=== PATIENT | male | born 1935 | race Caucasian/White ===

== ENCOUNTER 2016-06-14 09:05 | Inpatient (IN) | payer OTHER, BC ==
--- NOTE | 2016-06-05 11:53 | PAT Medication Instructions ---
Service Date Jun 05, 2016. Current Home Medication List Amlodipine Besylate (Amlodipine Besylate), 5 MG PO QAM Cholecalciferol (Vitamin D 1000 Unit), 1 CAP PO QAM Cranberry-Vitamin C-Vitamin E (Cranberry Plus Vitamin C), 4,200 MG PO QAM Donepezil HCl (Aricept), 1 TAB PO HS Gabapentin (Neurontin), 100 MG PO BID Glucosamine Sulfate (Glucosamine), Unknown Dose PO QAM Lisinopril (Lisinopril), 20 MG PO QAM Pyridoxine (Vitamin B6), 100 MG PO QAM Medication Instructions For Your Scheduled Surgery - Hold the following medications as of 06/06/16: Glucosamine Sulfate (Glucosamine), Unknown Dose PO QAM Cranberry-Vitamin C-Vitamin E (Cranberry Plus Vitamin C), 4,200 MG PO QAM - Hold the following medications the morning of surgery: Lisinopril (Lisinopril), 20 MG PO QAM Cholecalciferol (Vitamin D 1000 Unit), 1 CAP PO QAM Pyridoxine (Vitamin B6), 100 MG PO QAM - Take the following medications the morning of surgery with a sip of water OTHERWISE NOTHING TO EAT OR DRINK AFTER MIDNIGHT: Amlodipine Besylate (Amlodipine Besylate), 5 MG PO QAM Gabapentin (Neurontin), 100 MG PO BID - Take the following medications as scheduled the night before surgery: Gabapentin (Neurontin), 100 MG PO BID Donepezil HCl (Aricept), 1 TAB PO HS If you have any questions please call us at [phone] (Ryanne Malagon PA-C ) or [phone] or [phone]
[2016-06-05 12:46] LABS: BASO % 0.5 %; BASO ABS # 0.04 K/uL (0-0.2); COMPLETE YES; HEMATOCRIT 40.8 % (42-52); IG% 0.2 %; LYMPH % 13.5 %; LYMPH ABS # 1.12 K/uL (1.2-3.4); MEAN CELL VOLUME 91.7 fL (80-100); MEAN CORPUSCULAR HEMOGLOBIN 32.1 pg (25-34); MEAN PLATELET VOLUME 11.1 fL (7.4-10.4); MONO % 7.5 %; NEUT % 77.3 %; PLATELET COUNT 208 K/uL (130-400); RED BLOOD COUNT 4.45 M/uL (4.7-6.1); WHITE BLOOD COUNT 8.28 K/uL (4.8-10.8)
--- NOTE | 2016-06-05 13:14 | DIAGNOSTIC IMAGING REPORT ---
TWO VIEW CHEST CLINICAL HISTORY: Preoperative examination. FINDINGS: PA and lateral chest radiographs are compared to study dated 12/24/2014. Correlation is made with abdominal CT dated 02/11/2015. The heart is enlarged and there is atherosclerotic calcification of the thoracic aorta. The pulmonary vasculature is noncongested. Chronic interstitial thickening as well as calcified pleural plaques the left lung base is unchanged. No airspace consolidation or pleural effusion is identified. There is no pneumothorax. The skeletal structures are osteopenic. Degenerative change is noted throughout the thoracic spine. IMPRESSION: Cardiomegaly and chronic changes as above. There is no active disease in the chest. Electronically signed by: Jose Cheney M.D. 06/05/2016 1:12 PM
[2016-06-05 13:17] LABS: BUN/CREATININE RATIO 14.7 (10-20); CREATININE 0.9 mg/dl (0.60-1.40); POTASSIUM 3.8 mmol/L (3.5-5.1)
[~2016-06-14] VITALS: Ht 170.2 cm; Wt 89.4 kg
[~2016-06-14 09:05] MED LIST: CHOL100027 PO; CRAN1CAP14 PO; DONE5TAB9 PO; GABA-112 PO; GLUC10007 PO; LACTATED RINGER'S 1000ML 1,000 ML IV SCH; LSN20 PO; NRV5 PO; PYRI100T4 PO
[2016-06-14 09:32] VITALS: BP 170/79; PULSE 57; TEMP 36.6; O2SAT 97
[2016-06-14] MEDS ORDERED: PROPOFOL IV EMULSION 10 MG/ML 20 ML VIAL IV ONE (09:35)
[2016-06-14] MEDS ORDERED: NEOSTIGMINE METHYLSULFATE 5 MG/5 ML SYR ONE (09:35)
[2016-06-14] MEDS ORDERED: LIDOCAINE HCL 2% 2 ML VIAL (20MG/ML) ONE (09:35)
[2016-06-14] MEDS ORDERED: GLYCOPYRROLATE INJ 0.2 MG/ML VIAL ONE (09:35)
[2016-06-14] MEDS ORDERED: ONDANSETRON INJ 2 MG/ML 2 ML VIAL ONE (09:35)
[2016-06-14] MEDS ORDERED: MIDAZOLAM HCL 1 MG/ML 2ML VIAL ONE (09:35)
[2016-06-14] MEDS ORDERED: FENTANYL CITRATE INJ 50 MCG/1 ML 2 ML VIAL ONE (09:35)
[2016-06-14] MEDS ORDERED: ROCURONIUM BROMIDE 10 MG/ML 5 ML VIAL ONE ×2 (09:35→12:25)
[2016-06-14] MEDS ORDERED: DEXAMETHASONE SOD INJ 4 MG/ML VIAL ONE (09:35)
--- NOTE | 2016-06-14 10:53 | History & Physical Bridge Note ---
H&P Re-Evaluation Bridge Note: I have examined the patient, reviewed the History & Physical and in the interval since the performance of the History & Physical I have noted the following changes of clinical significance: No changes noted pt marked at bedside
[2016-06-14] MEDS ORDERED: CEFAZOLIN SOD 1 GM VIAL ONE (11:22)
[2016-06-14] MEDS ORDERED: BUPIVACAINE 0.5 % 5 MG/1 ML MPF 30ML VIAL INJ ONE (12:15)
[2016-06-14] MEDS ORDERED: ATROPINE SULFATE 0.4 MG/ML 1 ML VIAL ONE (12:17)
[2016-06-14] MEDS ORDERED: EpHEDrine SULFATE 50MG/5ML SYR ONE (12:26)
[2016-06-14] MEDS ORDERED: BACITRACIN 50000 UNIT VIAL IR ONE (12:30)
--- NOTE | 2016-06-14 12:43 | [facility] Post Operative Brief Note ---
Immediate Operative Summary Operative Date Jun 14, 2016. Pre-Operative Diagnosis Incisional hernia Post-Operative Diagnosis Repair recurrent hernia with dense abd adhesions and multifenestration Procedure(s) Performed Repair recurrent hernia with surgimesh 15 diameter and 10 diameter, and lysis of adhesions. Surgeon Robi Vang [employer] Appeals Reviewer Surgeon(s) Jesse Seymour Estimated Blood Loss 10mL Findings multiple defect along incision with incarcerated omentum and dense abd adhesions Specimens A: Urine for routine cath urinalysis, culture and sensitivity sent at 1150
[2016-06-14] MEDS ORDERED: ATROPINE SULFATE 0.1 MG/ML 5ML SYR IV PRN (13:00)
[2016-06-14] MEDS ORDERED: FLUMAZENIL 0.1 MG/1 ML 10 ML VIAL IV PRN (13:00)
[2016-06-14] MEDS ORDERED: EpHEDrine SULFATE INJ 50 MG/ML AMP IV PRN (13:00)
[2016-06-14] MEDS ORDERED: NALOXONE HCL 0.4 MG/1 ML VIAL/CARP IV PRN (13:00)
[2016-06-14] MEDS ORDERED: LABETALOL HCL IV 5 MG/ML 20ML IV PRN (13:00)
[2016-06-14] MEDS ORDERED: PROMETHAZINE HCL INJ 12.5 MG in SODIUM CHLORIDE 0.9% 50ML 50 ML IV PRN (13:00)
[2016-06-14] MEDS ORDERED: LACTATED RINGER'S 1000ML 1,000 ML IV SCH (13:01)
[2016-06-14] MEDS ORDERED: OXYC-57 PO (13:02)
--- NOTE | 2016-06-14 13:04 | Discharge Instructions ---
Discharge Instructions Visit Reason for Visit: Incisional Hernia Discharge Discharge Diagnosis / Problem: laparoscopic hernia repair Discharge Goals Goal(s): Decrease discomfort Activity Recommendations Activity Limitations: per Instructions/Follow-up section Lifting Limitations: no more than 10 pounds Shower/Bathe: tomorrow Driving or Machine Use: resume 3 days after discharge Anesthesia . Post Anesthesia Instructions: If you have had General Anesthesia or IV Sedation: * Do not drive today. * Resume driving when surgeon permits. * Do not make important decisions or sign legal documents today. * Call surgeon for: 1. Temperature elevations greater than 101 degrees F. 2. Uncontrollable pain. 3. Excessive bleeding. 4. Persistent nausea and vomiting. 5. Medication intolerance (nausea, vomiting or rash). * For nausea and vomiting use only clear liquids such as: tea, soda, bouillon until nausea subsides, then gradually increase diet as tolerated. * If you have any concerns or questions, call your surgeon's office. If physician is unavailable and it is an emergency, call 911 or go to the nearest emergency room. . Instructions / Follow-Up Instructions / Follow-Up Dr. Vang in 1 week, call [phone] if you do not already have an appt Diet Recommendations Recommended Home Diet: no limitations Procedures Procedures Performed: Laparoscopic Repair of recurrent hernia with surgimesh 15 diameter and 10 diameter, and lysis of adhesions. Pending Studies Studies pending at discharge: no Medical Emergencies . Who to Call and When: Medical Emergencies: If at any time you feel your situation is an emergency, please call 911 immediately. . Non-Emergent Contact Non-Emergency issues call your: Surgeon Call Non-Emergent contact if: you have a fever, temperature is above 101.5, your pain is not controlled, wound has increased redness, wound has increased pain . . "Provider Documentation" section prepared by Jesse Seymour.
[2016-06-14] MEDS ORDERED: ONDANSETRON INJ 2 MG/ML 2 ML VIAL IV PRN ×2 (13:15→14:45)
[2016-06-14] MEDS ORDERED: OXYCODONE/ACETAMINOPHEN 5-325 TAB PO PRN ×3 (13:15→14:45)
[2016-06-14] MEDS ORDERED: MoRPHine SULFATE 2 MG/ML CARP IV PRN ×2 (13:15→14:45)
[2016-06-14] MEDS ORDERED: HYDROmorphone INJ 1 MG/ML SYR ONE (13:18)
[2016-06-14] MEDS ORDERED: LABETALOL HCL IV 5 MG/ML 20ML ONE (13:18)
[2016-06-14] MEDS: HYDROmorphone INJ 1 MG/ML SYR IV PRN ×4 (13:25→14:23)
[2016-06-14] MEDS ORDERED: NURSING VERBAL MED ORDER ONE (13:30)
--- NOTE | 2016-06-14 13:32 | OPERATIVE REPORT ---
DATE OF OPERATION: 06/14/2016 PREOPERATIVE DIAGNOSIS: Recurrent incisional hernias. POSTOPERATIVE DIAGNOSIS: Same multiple with severe abdominal adhesions. PROCEDURE: Laparoscopic repair of multiple incarcerated incisional hernias, lysis of abdominal adhesions with mesh. SURGEON: Dr. Vang. MANAGER CLINICAL SERVICES: Elton Seymour PA-C. OPERATION AND FINDINGS: SUMMARY: The patient was brought into the operating room theater. Gordon catheter was positioned. The abdomen was shaved and prepped widely with Betadine scrubbing solution and properly draped. Systemic antibiotics were given. The patient had an upper midline incision extending from the level of the umbilicus to just a bit lower. He clinically had multiple incarcerated tissues in the epigastric area and this incision. Therefore we made a small incision in the infraumbilical about an inch or so to enter an area that we felt that probably did not have any adhesions. We used Braydon clamps to elevate the abdominal wall and then incised 0 Vicryl stay suture. We entered the peritoneal cavity with a 5 mm trocar. CO2 insufflated, pneumoperitoneum was controlled with Vicryl. At this point, we were able to see that the patient has significant abdominal adhesions in the anterior abdominal wall, mostly in the midline and also the right upper quadrant. Seemed like draped over the omentum and anterior wall. We at this point we were able to see in the right lower quadrant area that under direct visualization with preemptive local analgesia 1% Xylocaine, we were able to place a 5 mm trocar. With this then, we were able to see the left upper quadrant where another 5 mm trocar. With these 2 trocars we were able then to start freeing the dense abdominal adhesions which were omental adhesions in the midline. As we freed it up we continued to identify that multiple fenestrations of incarcerated omentum into the midline incision was identified. We could see some sutures. We also necessitated to place another 5 mm left lower quadrant port under direct visualization to help us but orientation and dissection. In the mid portion of the epigastric area, we could see the defect, 1 that was about 2 cm which showed what appeared to be mesh placement into the area. We at this point, we were able then to free up circumferentially all the way down to level and below the umbilicus sufficient enough so that the musculoskeletal planes were identified. We even took down part of the falciform ligament that basically would have a nice lay of Surgimesh. Though initially that 15 cm diameter Surgimesh would cover most of these areas therefore we brought it in, placed it through the infraumbilical trocar, elevated centrally in the mid portion of the exterior on the nylon suture. I used a Tacker circumferentially go well beyond the defects. Of notice there was another defect just inferior to that which was about another centimeter or so in the midline incision just above the umbilicus and at this point I elected to bring another piece of 10 cm Surgimesh. We elevated the right in central just to cover this defect and there was an overlap between the 2 meshes. We used a tacker circumferentially and then we elected to make sure that the 2 meshes would stay together we placed a nylon suture intraabdominally and elevated it anteriorly in the midline through the 1 mesh and superiorly incorporating both meshes. The repair appeared to be solid. Hemostasis was satisfactory. At this point, we took out individual trocars, used 0 Vicryl suture as a fascial stitch in the infraumbilical area and then placed another 0 Vicryl suture around it [id number]. Wounds were closed with 4-0 Dexon and Steri-Strips applied. The procedure was tolerated well by the patient, 10 mL blood loss. The patient was taken to recovery room in good condition. I attest to the content of the Intraoperative Record and any orders documented therein. Any exceptio ns are noted below.
[2016-06-14] MEDS ORDERED: MoRPHine SULFATE 4 MG/ML 1 ML CARP\\VIAL IV PRN (14:45)
--- NOTE | 2016-06-14 14:51 | Anesthesiology Progress Note ---
Anesthesia Post Op Note Date & Time Jun 14, 2016 at 14:41 Vital Signs Pain Intensity: 3 Vital Signs Past 12 Hours Date Time Temp Pulse Resp B/P Pulse Ox O2 Delivery O2 Flow Rate FiO2 06/14/16 14:36 56 17 96 06/14/16 14:36 58 17 06/14/16 14:34 149/78 06/14/16 14:31 60 17 94 06/14/16 14:31 67 17 06/14/16 14:29 142/80 06/14/16 14:26 63 14 96 06/14/16 14:26 63 14 06/14/16 14:24 145/85 06/14/16 14:21 55 13 06/14/16 14:21 52 13 95 06/14/16 14:19 136/83 06/14/16 14:16 56 15 96 06/14/16 14:16 65 15 06/14/16 14:15 142/78 06/14/16 14:10 59 17 96 06/14/16 14:10 66 17 06/14/16 14:09 139/79 06/14/16 14:05 56 16 92 06/14/16 14:05 57 16 06/14/16 14:04 142/82 06/14/16 14:00 53 15 97 06/14/16 14:00 61 15 06/14/16 13:59 53 18 170/71 96 06/14/16 13:59 62 18 06/14/16 13:55 143/87 06/14/16 13:54 56 16 06/14/16 13:54 55 16 95 06/14/16 13:50 133/77 06/14/16 13:49 60 13 06/14/16 13:49 54 13 100 06/14/16 13:44 59 12 06/14/16 13:44 57 12 146/89 99 06/14/16 13:39 65 15 06/14/16 13:39 61 15 140/73 95 06/14/16 13:35 171/98 06/14/16 13:34 67 14 100 06/14/16 13:34 75 14 06/14/16 13:29 69 17 172/106 97 06/14/16 13:29 74 17 06/14/16 13:25 172/98 06/14/16 13:24 63 18 98 06/14/16 13:24 68 18 06/14/16 13:19 86 17 06/14/16 13:19 73 17 99 06/14/16 13:15 185/108 06/14/16 13:14 82 15 100 06/14/16 13:14 81 15 06/14/16 13:09 90 18 06/14/16 13:09 88 18 179/117 98 06/14/16 13:04 87 18 183/103 94 06/14/16 13:04 82 18 06/14/16 12:59 83 15 97 06/14/16 12:59 85 15 06/14/16 12:59 36.0 79 16 175/104 98 Mask 10 06/14/16 09:32 36.6 57 20 170/79 97 Room Air Notes Mental Status: alert / awake / arousable, participated in evaluation Pt Amnestic to Procedure: Yes Nausea / Vomiting: adequately controlled Pain: adequately controlled Airway Patency, RR, SpO2: stable & adequate BP & HR: see Notes Hydration State: stable & adequate Anesthetic Complications: no major complications apparent Pt is 81 w/ PMHx sig. 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 Pt had a laparoscopic inuinal hernia repair under general anesthesia w/o incident.In PACU, I noticed the radiation monitor w/PAC's,some PVC's and ST elevations.A 12 lead EKG was obtained which showed 2nd degree AV block and inferior STEMI. Troponins were ordered w/c were basically normal at this time.Cardiology was consulted. They agreed that this maybe an impending inferior stemi.A second EKG was obtained w/c showed SR w/2nd degree AV block, otherwise back to baseline.Pt has been H/D stable w/o c/o c/p or sob. Pt will be admitted to telemetry and followed by cardiology.
[2016-06-14] MEDS ORDERED: HydrALAZINE HCL 20 MG/ML VIAL IV. PRN (15:00)
--- NOTE | 2016-06-14 15:45 | Cardiology Consultation ---
Cardiology Consultation Date of Consultation: Jun 14, 2016. Attending Physician: Dr. Griffith Reason for Consultation: Post-op ECG changes Pt evaluation today including: conversation w/ patient, physical exam, chart review, lab review, review of studies, review of inpatient medication list, conversation w/ attending History of Present Illness Mr. Jordan is an 81-year-old male with a past medical history significant for hypertension, hypogammaglobulinemia with IgG kappa, peripheral neuropathy, and dizziness who underwent laparoscopic repair of incision hernia earlier today with Dr. Vang. Following the procedure, ECG showed new ST elevation in lead III as well as ST depression of leads V2-V6, I, and aVL. Repeat ECG about 50 minutes later with resolution of the ST changes. Throughout the post- operative period, he has denied any chest discomfort or other anginal symptoms. He has been resting comfortably with no shortness of breath, lightheadedness, palpitations, nausea, or vomiting. His only complaint is abdominal pain around the area of his laparoscopic incision. Review of Systems: As noted in HPI. All other ROS otherwise negative. Past Medical/Surgical History Surgical hx: S/P appendectomy, S/P hernia repair Family History Patient reports no known family medical history. Noncontributory given his advanced age Social History Smoking Status: Former Smoker History of Alcohol Use: No Former smoker. Former alcohol abuse. No recreational drug use. Allergies Coded Allergies: No Known Allergies (Verified , 06/14/16) Medications Current Inpatient Medications Medications (Trade) Dose Ordered Sig/Any Route Start Time Stop Time Status Last Admin Dose Admin Lactated Ringer's (Lr 1000ml) 1,000 ml @ 15 mls/hr Q24H IV 06/14/16 06:00 06/14/16 18:00 Hydromorphone HCl (Dilaudid Inj) 0.25 mg Q5M PRN IV 06/14/16 13:00 06/14/16 18:00 06/14/16 13:50 0.25 MG Naloxone HCl (Narcan Inj) 0.2 mg Q2M PRN IV 06/14/16 13:00 06/14/16 18:00 Flumazenil 0.2 mg 0.2 mg Q2M PRN IV 06/14/16 13:00 06/14/16 18:00 Promethazine HCl/ Sodium Chloride (Phenergan Inj/ Nss 50ml) 50.5 ml @ 202 mls/hr ONE PRN IV 06/14/16 13:00 06/14/16 18:00 Labetalol HCl (Normodyne IV) 5 mg Q5M PRN IV 06/14/16 13:00 06/14/16 18:00 Ephedrine Sulfate (EpHEDrine SULFATE INJ) 5 mg Q5M PRN IV 06/14/16 13:00 06/14/16 18:00 Atropine Sulfate 0.5 mg 0.5 mg Q1M PRN IV 06/14/16 13:00 06/14/16 18:00 Sodium Chloride (Nss 1000ml) 1,000 ml @ 80 mls/hr [id number] IV 06/14/16 14:37 07/14/16 14:36 UNV Ondansetron HCl (Zofran Inj) 4 mg Q4H PRN IV 06/14/16 14:45 07/14/16 14:44 UNV Morphine Sulfate (MoRPHine SULFATE INJ) 2 mg Q1H PRN IV 06/14/16 14:45 06/28/16 14:44 UNV Oxycodone/ Acetaminophen (Percocet 5-325MG Tab) 1 tab Q4H PRN PO 06/14/16 14:45 06/28/16 14:44 UNV Morphine Sulfate (MoRPHine SULFATE INJ) 4 mg Q1H PRN IV 06/14/16 14:45 06/28/16 14:44 UNV Oxycodone/ Acetaminophen (Percocet 5-325MG Tab) 2 tab Q4H PRN PO 06/14/16 14:45 06/28/16 14:44 UNV Amlodipine Besylate (Norvasc Tab) 5 mg QAM PO 06/15/16 09:00 07/15/16 08:59 UNV Donepezil HCl (Aricept Tab) 5 mg HS PO 06/14/16 21:00 07/14/16 20:59 UNV Gabapentin (Neurontin Cap) 100 mg BID PO 06/14/16 21:00 07/14/16 20:59 UNV Lisinopril (Zestril Tab) 20 mg QAM PO 06/15/16 09:00 07/15/16 08:59 UNV Hydralazine HCl (HydrALAZINE INJ) 20 mg UD PRN IV. 06/14/16 15:00 07/14/16 14:59 UNV Physical Exam Vital Signs Past 12 Hours Date Time Temp Pulse Resp B/P Pulse Ox O2 Delivery O2 Flow Rate FiO2 06/14/16 15:04 138/93 06/14/16 15:03 74 20 06/14/16 15:03 74 20 96 06/14/16 14:58 72 18 141/81 94 06/14/16 14:58 72 18 06/14/16 14:57 36.3 06/14/16 14:53 68 19 06/14/16 14:53 63 19 95 06/14/16 14:49 131/81 06/14/16 14:48 63 18 95 06/14/16 14:48 65 18 06/14/16 14:47 63 16 97 06/14/16 14:47 66 16 06/14/16 14:45 147/84 06/14/16 14:42 77 16 06/14/16 14:42 56 16 92 06/14/16 14:39 134/81 06/14/16 14:37 56 14 98 06/14/16 14:37 60 14 06/14/16 14:36 56 17 96 06/14/16 14:36 58 17 06/14/16 14:34 149/78 06/14/16 14:31 60 17 94 06/14/16 14:31 67 17 06/14/16 14:29 142/80 06/14/16 14:26 63 14 96 06/14/16 14:26 63 14 06/14/16 14:24 145/85 06/14/16 14:21 55 13 06/14/16 14:21 52 13 95 06/14/16 14:19 136/83 06/14/16 14:16 56 15 96 06/14/16 14:16 65 15 06/14/16 14:15 142/78 06/14/16 14:10 59 17 96 06/14/16 14:10 66 17 06/14/16 14:09 139/79 06/14/16 14:05 56 16 92 06/14/16 14:05 57 16 06/14/16 14:04 142/82 06/14/16 14:00 53 15 97 06/14/16 14:00 61 15 06/14/16 13:59 53 18 170/71 96 06/14/16 13:59 62 18 06/14/16 13:55 143/87 06/14/16 13:54 56 16 06/14/16 13:54 55 16 95 06/14/16 13:50 133/77 06/14/16 13:49 60 13 06/14/16 13:49 54 13 100 06/14/16 13:44 59 12 06/14/16 13:44 57 12 146/89 99 06/14/16 13:39 65 15 06/14/16 13:39 61 15 140/73 95 06/14/16 13:35 171/98 06/14/16 13:34 67 14 100 06/14/16 13:34 75 14 06/14/16 13:29 69 17 172/106 97 06/14/16 13:29 74 17 06/14/16 13:25 172/98 06/14/16 13:24 63 18 98 06/14/16 13:24 68 18 06/14/16 13:19 86 17 06/14/16 13:19 73 17 99 06/14/16 13:15 185/108 06/14/16 13:14 82 15 100 06/14/16 13:14 81 15 06/14/16 13:09 90 18 06/14/16 13:09 88 18 179/117 98 06/14/16 13:04 87 18 183/103 94 06/14/16 13:04 82 18 06/14/16 12:59 83 15 97 06/14/16 12:59 85 15 06/14/16 12:59 36.0 79 16 175/104 98 Mask 10 06/14/16 09:32 36.6 57 20 170/79 97 Room Air Constitutional: Alert, oriented, in no acute distress. Hard of hearing. Oxygen via nasal cannula HEENT: Head is atraumatic and normocephalic. EOMs intact. Sclera anicteric. Face is symmetric. No perioral cyanosis. Mucous membranes moist. Neck: Supple, no JVD Pulmonary: Normal respiratory effort, clear to auscultation bilaterally Cardiac: Distant heart sounds. Regular rate and rhythm, normal S1 and S2, no gallops, no rubs, no obvious murmurs Extremities: SCDs in place. No edema. Pulses intact Abdomen: S/P laparoscopic incisional hernia repair. Normal bowel sounds, soft, non-tender, no abdominal mass palpated Skin: Normal skin color, turgor, and pigmentation, no rash, no skin lesions Neurological: Oriented to person, place, and time Data Laboratory Results: Last 24 Hours Test 06/14/16 13:43 Troponin I 0.016 ng/ml CXR 06/05/16: Cardiomegaly and atherosclerotic calcification of the thoracic aorta. Chronic interstitial thickening as well as calcified pleural plaques the left lung base is unchanged. The skeletal structures are osteopenic. Degenerative change is noted throughout the thoracic spine. No active disease in chest. EKG 06/05/16: Sinus rhythm with 1st degree AV block with PACs. Nonspecific ST abnormality EKG 06/14/16 13:02: Sinus tachycardia with 2nd degree (Mobitz I) AV block with occasional PVCs. ST elevation lead III. ST depression leads V2-V6, I, aVL. EKG 06/14/16 13:52: Sinus rhythm with 2nd degree (Mobitz I) AV block. Resolution of ST changes. Assessment & Plan Patient is an 81-year-old male with no known cardiac history who underwent laparoscopic incision hernia repair with Dr. Vang. Following surgery, he was noted to have new EKG changes with ST elevation in lead III and ST depression of his anterolateral leads. Repeat EKG showed resolution of the changes. His first Troponin was negative. Patient has remained asymptomatic in regards to chest pain throughout the perioperative period. Patient seen/ discussed with Dr. Griffith and Dr. Pena. There is no urgent indication for cardiac catheterization at this time as it appears his EKG changes were due to hemodynamic changes following surgery rather than ACS, but it is recommended that he be admitted to the unit with serial cardiac enzymes as well as prn EKGs for chest pain. If patient is stable and amendable, will consider performing cardiac catheterization tomorrow for further evaluation of his coronary anatomy. Continue VEHICLE PAINTER medications and Hydralazine 20 mg IV q3 has also been ordered prn for systolic BP >160 mmHg. Will continue to follow throughout his hospitalization and make further recommendations depending on his clinical course. DR. PENA ADDENDUM: Have seen and examined Mr. Jordan in the PACU. Agree with assessment and plan as outlined by physician assistant golf course superintendent Ms. Muñoz. 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 In PACU was noted to have PVCs and possible ST elevation on monitor and ECG obtained. ECG showed 2nd degree AVB type I with marked ST anterolateral depressions with borderline inferior ST elevations. Patient reports being chest pain free throughout hospital course and repeat ECG 50 min later showed resolved dynamic ST changes. Initial troponin negative. Last stress test negative at 81% MPHR, with normal resting LV function 10/2014. Denies exertional symptoms at home. Low suspicion for true ACS at this point but concern that initial ECG in the setting of perioperative stress may represent hemodynamically significant underlying coronary artery disease "failed stress test." In that setting feel patient warrants further ischemic evaluation. Discussed possible cardiac catheterization at some point with patient this evening. Patient wishes to discuss further with his in AM. Monitor on telemetry overnight, follow-up cardiac enzymes.
[2016-06-14 20:07] VITALS: BP 156/91; PULSE 89; TEMP 36.3; O2SAT 95; Ht 170.2 cm; Wt 89.4 kg
[2016-06-14] MEDS: SODIUM CHLORIDE 0.9% 1000ML 1,000 ML IV SCH (21:00)
[2016-06-14] MEDS ORDERED: DONEPEZIL HCL 5 MG TAB PO SCH (21:00)
[2016-06-14] MEDS: GABAPENTIN 100 MG CAP PO SCH (21:34)
[2016-06-14 22:57] VITALS: BP 153/77; PULSE 83; TEMP 37; O2SAT 93
[2016-06-15 00:07] VITALS: BP 136/80; PULSE 86; TEMP 36.7; O2SAT 98
[2016-06-15 03:15] VITALS: BP 124/74; PULSE 86; TEMP 36.8; O2SAT 95
[2016-06-15] MEDS: SODIUM CHLORIDE 0.9% 1000ML 1,000 ML IV SCH (05:19)
[2016-06-15 05:23] LABS: BASO % 0.1 %; BASO ABS # 0.01 K/uL (0-0.2); COMPLETE YES; HEMATOCRIT 29.5 % (42-52); IG% 0.3 %; LYMPH % 6.2 %; LYMPH ABS # 0.93 K/uL (1.2-3.4); MEAN CELL VOLUME 91.3 fL (80-100); MEAN CORPUSCULAR HEMOGLOBIN 31.6 pg (25-34); MEAN CORPUSCULAR HGB CONC 34.6 g/dl (32-36); MONO % 11.3 %; NEUT % 82.1 %; PLATELET COUNT 196 K/uL (130-400); RED BLOOD COUNT 3.23 M/uL (4.7-6.1)
[2016-06-15 05:48] LABS: BUN/CREATININE RATIO 17.3 (10-20); CALCIUM 7.9 mg/dl (8.5-10.1); CREATININE 0.94 mg/dl (0.60-1.40); POTASSIUM 4.5 mmol/L (3.5-5.1)
[2016-06-15 05:55] LABS: CKMB/CK RATIO 4.5 (0-3.0)
[2016-06-15 08:07] VITALS: BP 133/77; PULSE 71; TEMP 37; O2SAT 98
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
--- NOTE | 2016-06-15 08:35 | Anesthesiology Progress Note ---
Anesthesia Post Op Note Date & Time Jun 15, 2016 at 08:34 Vital Signs Pain Intensity: 5.0 Vital Signs Past 12 Hours Date Time Temp Pulse Resp B/P Pulse Ox O2 Delivery O2 Flow Rate FiO2 06/15/16 08:07 37.0 71 20 133/77 98 Nasal Cannula 2.0 06/15/16 04:00 Nasal Cannula 2.0 06/15/16 03:15 36.8 86 20 124/74 95 Nasal Cannula 2.0 06/15/16 00:07 36.7 86 19 136/80 98 Nasal Cannula 2.0 06/15/16 00:00 Nasal Cannula 2.0 06/14/16 22:57 Notes Mental Status: alert / awake / arousable, participated in evaluation Pt Amnestic to Procedure: Yes Nausea / Vomiting: adequately controlled Pain: adequately controlled Airway Patency, RR, SpO2: stable & adequate BP & HR: stable & adequate Hydration State: stable & adequate Anesthetic Complications: no major complications apparent
[2016-06-15] MEDS: GABAPENTIN 100 MG CAP PO SCH (08:39)
[2016-06-15] MEDS ORDERED: LISINOPRIL 20 MG TAB PO SCH (09:00)
[2016-06-15] MEDS ORDERED: AMLODIPINE BESYLATE 5 MG TAB PO SCH (09:00)
[2016-06-15] MEDS ORDERED: PLAVIX75 PO (09:56)
--- NOTE | 2016-06-15 10:06 | Clinical Documentation Query ---
CLINICAL DOCUMENTATION QUERY 81-y/o male who has undergone laparoscopic repair of incisional hernia and lysis of abdominal adhesions with mesh. In your clinical opinion is this patient being managed for: ( ) Demand ischemia in setting of anemia and surgical stress ( ) NSTEMI in setting of anemia and surgical stress ( ) Other explanation of clinical findings (Please Explain) ( ) Unable to determine (Please Define) ( ) Need to Discuss ( x ) Not Agree refer to cardiology for their dx The medical record reflects the following clinical findings, treatment, and risk factors. Clinical Indicators: Post operative ST changes which latter normalized & upward trending troponin's (0.016, 0.047, 0.511) Treatment: Cardiology consult, serial cardiac markers, telemetry, Risk Factors: Age, HTN, anemia, Please clarify and document your clinical opinion in the progress notes and discharge summary. Terms such as "probable", "suspected", "likely", "questionable", "possible", or "still to be ruled out" are acceptable. IF IN AGREEMENT, YOU MUST DOCUMENT ABOVE DIAGNOSTIC STATEMENT IN DAILY PROGRESS NOTES AND DISCHARGE SUMMARY. This document is not part of the patient's record. Thank You, Carmelo Moore, RN [phone]
[2016-06-15 10:45] VITALS: BP 118/78; PULSE 88; O2SAT 98
[2016-06-15] MEDS ORDERED: NiCARDipine HCL INJ 2.5 MG/ML 10 ML AMP ONE (10:56)
[2016-06-15] MEDS ORDERED: HEPARIN SOD (PORCINE) 1000 UNIT/ML 10 ML VIAL ONE (10:56)
[2016-06-15] MEDS ORDERED: FENTANYL CITRATE INJ 50 MCG/1 ML 2 ML VIAL ONE (10:57)
[2016-06-15] MEDS ORDERED: MIDAZOLAM HCL 1 MG/ML 2ML VIAL ONE (10:57)
[2016-06-15] MEDS ORDERED: NITROGLYCERIN/D5W 100MCG/ML 20ML SYR ONE (10:58)
--- NOTE | 2016-06-15 11:05 | Cardiology Follow-Up ---
Subjective Subjective Date of Service: Jun 15, 2016. Pt evaluation today including: conversation w/ patient, conversation w/ family (son), physical exam, chart review, lab review, review of studies, conversation w/ funeral pre need consultant, review of inpatient medication list Pain: upper abdomen Voiding: no voiding problems Additional Details: some upper abdomen discomfort/low chest. dyspnea is stable. dynamic ECG changes this morning after normalization earlier. denies bleeding issues. During OR, patient had some bradycardia, bp remained stable. Review of Systems Constitutional: + fatigue, + weakness, No chills, No fever Eyes: No worsening of vision ENT: + hearing loss, No problem reported, No trouble swallowing, No unusual epistaxis Respiratory: No cough, No dyspnea at rest, No dyspnea on exertion, No hemoptysis, No shortness of breath, No sputum Cardiac: + chest pain, No PND, No claudication, No edema, No orthopnea, No palpitations, No problem reported Breast: No breast pain, No problem reported Abdomen: + pain (at incision), No GI bleeding, No constipation, No diarrhea, No nausea, No problem reported, No vomiting Musculoskeletal: No calf pain, No joint pain, No swelling Male : No hematuria, No problem reported Neurologic: + balance problems, + memory loss, + problem reported Psychiatric: No anxiety, No depression symptoms Heme: No abnormal bleeding/bruising, No problem reported Endo: No fatigue, No problem reported Skin: No bleeding, No color change, No itch, No new/changing skin lesions, No problem reported, No rash Objective Vital Signs Last Vital Signs Documentation Date Time Temp Pulse Resp B/P Pulse Ox O2 Delivery O2 Flow Rate FiO2 06/15/16 08:07 37.0 71 20 133/77 98 Nasal Cannula 2.0 Physical Exam: General Appearance: WD/WN, no apparent distress Eyes: bilateral eyes EOMI, bilateral eyes normal inspection ENT: normal ENT inspection, hearing grossly normal Neck: supple, no adenopathy, thyroid normal, no JVD, no carotid bruits, trachea midline Respiratory/Chest: chest non-tender, lungs clear, normal breath sounds, no respiratory distress, no accessory muscle use Cardiovascular: regular rate, rhythm, no edema, no gallop, no JVD, no murmur Abdomen: normal bowel sounds, soft, + pertinent finding (ecchymosis around incisions. CDI) Extremities: normal range of motion, non-tender, normal inspection, no pedal edema, no calf tenderness Neurologic/Psychiatric: alert, normal mood/affect, oriented x 3, + disoriented , + pertinent finding Skin: normal color, warm/dry, no rash Lymphatic: no adenopathy Assessment and Plan 1. NSTEMI ECG changes - isolated ST elevations with q waves in III. Dynamic ST depressions throughout. Patient with upper abdomen/lower chest discomfort and dizziness/LH currently. BP stable. Discussion with surgery, hopefully ok regarding bleeding risk POD 1. Recommend cardiac catheterization today/ urgently regarding dynamic changes on ECG. Echo pending, however, there are regional wall motion abnormalities. Initial plan was to treat conservatively, however, with ongoing ECG changes, rising trop, and symptoms - rec cath today. Risk discussed with patient - he is agreeable. Discussed with son on the phone - he is agreeable. is on her way. Medications: Current Inpatient Medications Medications (Trade) Dose Ordered Sig/Any Route Start Time Stop Time Status Last Admin Dose Admin Sodium Chloride (Nss 1000ml) 1,000 ml @ 80 mls/hr [id number] IV 06/14/16 14:37 07/14/16 14:36 06/15/16 05:19 80 MLS/HR Ondansetron HCl (Zofran Inj) 4 mg Q4H PRN IV 06/14/16 14:45 07/14/16 14:44 Morphine Sulfate (MoRPHine SULFATE INJ) 2 mg Q1H PRN IV 06/14/16 14:45 06/28/16 14:44 Oxycodone/ Acetaminophen (Percocet 5-325MG Tab) 1 tab Q4H PRN PO 06/14/16 14:45 06/28/16 14:44 06/15/16 00:12 1 TAB Morphine Sulfate (MoRPHine SULFATE INJ) 4 mg Q1H PRN IV 06/14/16 14:45 06/28/16 14:44 Oxycodone/ Acetaminophen (Percocet 5-325MG Tab) 2 tab Q4H PRN PO 06/14/16 14:45 06/28/16 14:44 Amlodipine Besylate (Norvasc Tab) 5 mg QAM PO 06/15/16 09:00 07/15/16 08:59 06/15/16 08:14 5 MG Donepezil HCl (Aricept Tab) 5 mg HS PO 06/14/16 21:00 07/14/16 20:59 06/14/16 22:16 5 MG Gabapentin (Neurontin Cap) 100 mg BID PO 06/14/16 21:00 07/14/16 20:59 06/15/16 08:39 100 MG Lisinopril (Zestril Tab) 20 mg QAM PO 06/15/16 09:00 07/15/16 08:59 06/15/16 08:15 20 MG Hydralazine HCl (HydrALAZINE INJ) 20 mg Q3H PRN IV. 06/14/16 15:00 07/14/16 14:59 Lab Results: 06/15/16 05:14 Red Blood Count 3.23, Mean Corpuscular Volume 91.3, Mean Corpuscular Hemoglobin 31.6, Mean Corpuscular Hemoglobin Concent 34.6, Mean Platelet Volume 11.0, Neutrophils (%) (Auto) 82.1, Lymphocytes (%) (Auto) 6.2, Monocytes (%) (Auto) 11.3, Eosinophils (%) (Auto) 0.0, Basophils (%) (Auto) 0.1, Neutrophils # (Auto ) 12.32, Lymphocytes # (Auto) 0.93, Monocytes # (Auto) 1.70, Eosinophils # (Auto ) 0.00, Basophils # (Auto) 0.01 06/15/16 05:14 Test 06/15/16 05:14 White Blood Count 15.00 K/uL (4.8-10.8) Red Blood Count 3.23 M/uL (4.7-6.1) Hemoglobin 10.2 g/dL (14.0-18.0) Hematocrit 29.5 % (42-52) Mean Corpuscular Volume 91.3 fL (80-100) Mean Corpuscular Hemoglobin 31.6 pg (25-34) Mean Corpuscular Hemoglobin Concent 34.6 g/dl (32-36) Platelet Count 196 K/uL (130-400) Mean Platelet Volume 11.0 fL (7.4-10.4) Neutrophils (%) (Auto) 82.1 % Lymphocytes (%) (Auto) 6.2 % Monocytes (%) (Auto) 11.3 % Eosinophils (%) (Auto) 0.0 % Basophils (%) (Auto) 0.1 % Neutrophils # (Auto) 12.32 K/uL (1.4-6.5) Lymphocytes # (Auto) 0.93 K/uL (1.2-3.4) Monocytes # (Auto) 1.70 K/uL (0.11-0.59) Eosinophils # (Auto) 0.00 K/uL (0-0.5) Basophils # (Auto) 0.01 K/uL (0-0.2) RDW Standard Deviation 47.6 fL (36.4-46.3) RDW Coefficient of Variation 14.2 % (11.5-14.5) Immature Granulocyte % (Auto) 0.3 % Immature Granulocyte # (Auto) 0.04 K/uL (0.00-0.02) Anion Gap 8.0 mmol/L (3-11) Est Creatinine Clear Calc Drug Dose 64.9 ml/min Estimated GFR () 87.8 Estimated GFR (Non- 75.7 BUN/Creatinine Ratio 17.3 (10-20) Calcium Level 7.9 mg/dl (8.5-10.1) Total Creatine Kinase 188 U/L (39-308) Creatine Kinase MB 8.5 ng/ml (0.5-3.6) Creatine Kinase MB Ratio 4.5 (0-3.0) Troponin I 0.511 ng/ml (0-0.045)
--- NOTE | 2016-06-15 11:06 | Procedure Note ---
Pre-Mod Sedation Assessment General Date of Moderate Sedation: Jun 15, 2016. Vital Signs: Vital Signs Past 12 Hours Date Time Temp Pulse Resp B/P Pulse Ox O2 Delivery O2 Flow Rate FiO2 06/15/16 08:07 37.0 71 20 133/77 98 Nasal Cannula 2.0 06/15/16 04:00 Nasal Cannula 2.0 06/15/16 03:15 36.8 86 20 124/74 95 Nasal Cannula 2.0 06/15/16 00:07 36.7 86 19 136/80 98 Nasal Cannula 2.0 06/15/16 00:00 Nasal Cannula 2.0 Review Cardiovascular: regular rate, rhythm, no edema, no gallop, no JVD, no murmur, normal peripheral pulses Abdomen: normal bowel sounds, soft, + pertinent finding (post op changes) Lungs: chest non-tender, lungs clear, normal breath sounds, no respiratory distress, no accessory muscle use Pre-Sedation Airway Assessment Oral Cavity: Dentures Able to Visualize Vocal Cords: No Short Thick Neck: No Hx of Sleep Apnea: No Smoking Status: Former Smoker Procedure Planning Contraindications-for Mod Sed: None Yes Notes The planned sedation has been discussed with the patient and consent obtained. I have identified the patient, determined the appropriateness of sedation and have assessed the patient immediately prior to the procedure. All medicine(s) and interventions are by my order.
--- NOTE | 2016-06-15 12:18 | Procedure Note ---
Post-Mod Sedation Assessment General Date of Moderate Sedation Jun 15, 2016. Vital Signs: Vital Signs Past 12 Hours Date Time Temp Pulse Resp B/P Pulse Ox O2 Delivery O2 Flow Rate FiO2 06/15/16 08:07 37.0 71 20 133/77 98 Nasal Cannula 2.0 06/15/16 04:00 Nasal Cannula 2.0 06/15/16 03:15 36.8 86 20 124/74 95 Nasal Cannula 2.0 Review - Discharge Criteria Vital Signs Stable: Yes Alert/Oriented/Conversant: Yes Returned to Baseline Mental St: Yes Nausea Absent/Minimal: Yes Pain/Discomfort/Absent/Minimal: Yes Normal/Baseline Respirations: Yes Active Bleeding?: No Pt Received D/C Instructions: No Prescriptions Given: None Specific Proced. D/C Criteria Distal Pulses Present (Cardiac: Yes Groin site assessed-Card Cath: Yes Voided Prior To Discharge: N/A Discharged Patients Adult Escort/Transportation: N/A
--- NOTE | 2016-06-15 12:49 | Cardiac Catheterization ---
Procedure Note Procedure Date Jun 15, 2016. Pre-Procedure Diagnosis Non STEMI, Acute Coronary Syndrome AUC Score 9 Post-Procedure Diagnosis Severe CAD, Unsuccessful PCI Procedure(s) Performed Coronary Angiography, Left Heart Cath, Radial Artery Angiography Turner Off Dr. Flores Buyer Intern(s) jerome Estimated Blood Loss 40 Medication(s) Fentanyl, Heparin, Nicardipine, Nitroglycerin, Versed, Lidocaine 1% Summary of Findings [place]. Worsening symptoms and dynamic ECG changes. Right radial access. Radial angiogram as sheath wouldn't pass. tortuous but patent. Tortuous brachiocephalic, couldn't engage the RCA well - convert to femoral. US guided right Femoral access. Access in the right SFA. Sheath sutured in at conclusion of procedure. 5 Arabic FL 4 and FR4 diagnostic catheters. LM: Distal 90% leading into both the ostial LCx and ostial LAD. LAD: ostial 90% stenosis. Diffuse mild disease throughout the LAD and approximately 70% stenosis mid to distal vessel after diagonal 2. Diagonal 1 and 2 overall normal with mild disease. LCx: ostial 90% stenosis. At the large OM2 takeoff, 40% circ stenosis relatively focal. OM2 is the largest OM, diffuse moderate disease throughout with mid to distal 60% stenosis near the bifurcation of 2 sub-branches of the OM2. Left to right collaterals through the LCx RCA: ostial 80% focal stenosis. 50% stenosis shortly after. Proximal to mid vessel 100% stump occlusion. JR4 guide. Decision to send patient for CT surgery but confirm the RCA is chronic. 2 wires used to the RCA, unable to cross the occlusion. Decision to stop. Discussion with [facility] [place], [facility] [place], [place] - nobody has beds available. On the wait list at [facility] [place], will continue to call hospitals to see if beds become available. If not, then keep at [facility] and treat medically until transfer. Groin sheath sutured in place. Radial TR band applied. Hemodynamics Rest Ao: 91/48/67 Final Ao: 109/60/81 LV: 97/-2/13 Recommendations CABG Specimens None Radiation Exposure (mGy) 2953 Contrast (mls) 50 Fluids (cc crystalloids) 75 Drains right femoral sheath Anesthesia fent versed lido Procedural Complication(s) None Disposition Director Of Primary Care Holding/Recovery ACC Data Cardiac Status Clinical evaluation leading to the procedure CAD Presntation: Unstable angina Anginal Classification: CCS III Heart Failure: Yes, NYHA Class: CCS II Cardiogenic Shock w/in 24Hrs: No Cardiac Arrest w/in 24Hrs: No Imaging studies past 6 months: No Stress studies past 6 months: No Standard Exercise Stress Test: No Stress Echocardiogram: No Stress Testing w/SPECT MPI: No Cardiac CTA: No Coronary Anatomy Dominant: Right Left Main (% Stenosis): Distal (90) LAD (% Stenosis): Ostial (90), Mid (70) Circumflex (% Stenosis): Ostial (90) OM2 (% Stenosis): Mid (70) RCA (% Stenosis): Proximal (100) Left Ventricular Angiography EF (%): not done Diagnostic Physician's Name: Bob Flores, Status: Emergency Closure Device Percutaneous Entry Location: Femoral Closure Device: none - manual hold Recommendations: CABG PCI Indication: PCI for high risk Non-STEMI First Noted: Subsequent EKG (inhouse ECG) Lesion Segment Name: RCA Culprit Artery: No Stenosis Prior to Rx (%): 100 Chronic Total Occlusion: Yes IVUS: No FFR: No Pre-Procedure OLGA Flow: 0 Previously Treated Lesion: No Lesion Complexity: Non-High/Non-C Thrombus Present: No Bifurcation Lesion: No Guidewire Across Lesion: No Intraprocedure Events Significant Dissection: No Perforation: No
[2016-06-15] MEDS ORDERED: HEPARIN 25000 UNIT/500 ML D5W ONE (12:55)
--- NOTE | 2016-06-15 12:56 | ECHOCARDIOGRAM REPORT ---
*NOTICE TO RECEIVING [employer] This information is strictly Confidential and protected under [place] law. [place] law prohibits you from making any further disclosure of this information unless further disclosure is expressly permitted by the written consent of the person to whom it pertains or is authorized by law. A general authorization for the release of medical or other information is not sufficient for this purpose. Hospital accepts no responsibility if the information is made available to any other person, INCLUDING THE PATIENT. Interpretation Summary * Name: KAMILA JOEL Study Date: 06/15/2016 09:45 AM BP: 133/77 mmHg * Patient Location: S236 HR: 90 * : 1935 (M/d/yyyy) Gender: Male Height: 67 in * Age: 81 yrs Ethnicity: CA Weight: 197 lb * Performed By: Jen Bowens RCS * * Reason For Study: AMI * BSA: 2.0 m2 * -- Conclusions -- * Compared with 12/15/14 study, systolic function has declined and wall motion abnormalities are new. * The left ventricle is mildly dilated. * There is moderate concentric left ventricular hypertrophy. * Left ventricular systolic function is moderately reduced. * Ejection Fraction = 35-40%. * There is moderate global hypokinesis of the left ventricle. * Distal inferior/inferoapical severe hypokinesis. * There is mild to moderate mitral regurgitation. * The left atrium is moderately dilated. * There is mild tricuspid regurgitation. * Right ventricular systolic pressure is elevated at 40-50mmHg. * The inferior vena cava is mildly dilated. Procedure Details * A complete two-dimensional transthoracic echocardiogram was performed (2D, M-mode, Doppler and color flow Doppler). * A contrast injection of Definity was performed to improve assessment of LV function. * Contrast was injected into an intravenous site in the left arm. * One vial of Definity ultrasound contrast was diluted in normal saline to a total volume of 10 ml. A total of '2' ml of solution was administered during imaging. * Lot # [id number] of Definity utilized for procedure. * Expiration date 1 NOV 24. * The attending nurse who injected the contrast agent was JESSE ZAPATA, DAMARIS. Left Ventricle * The left ventricle is mildly dilated. * There is moderate concentric left ventricular hypertrophy. * Ejection Fraction = 35-40%. * Left ventricular systolic function is moderately reduced. * There is moderate global hypokinesis of the left ventricle. * Distal inferior/inferoapical severe hypokinesis. Right Ventricle * The right ventricle is normal in size and function. * The right ventricular systolic function is normal. Atria * The left atrium is moderately dilated. * Right atrial size is normal. * The interatrial septum is intact with no evidence for an atrial septal defect. Mitral Valve * The mitral valve is normal in structure and function. * There is mild to moderate mitral regurgitation. Tricuspid Valve * The tricuspid valve is normal in structure and function. * There is mild tricuspid regurgitation. * Right ventricular systolic pressure is elevated at 40-50mmHg. Aortic Valve * The aortic valve is trileaflet. * Aortic valve sclerosis moderate, without significant aortic valvular stenosis. * No hemodynamically significant valvular aortic stenosis. * There is no significant aortic regurgitation. Pulmonic Valve * The pulmonary valve is not well seen, but the Doppler examination is normal without significant regurgitation or stenosis. * Trace pulmonic valvular regurgitation. Great Vessels * The aortic root is normal size. * Aortic arch of normal dimension. * No obvious dissection could be visualized. * The pulmonary artery is not well visualized, but is probably normal size. Pericardium/Pleural * There is no pericardial effusion. Great Vessels * The inferior vena cava is mildly dilated. MMode 2D Measurements and Calculations IVSd 1.6 cm IVSs 1.6 cm LVIDd 4.5 cm LVIDs 3.6 cm LVPWd 1.3 cm LVPWs 1.3 cm IVS/LVPW 1.3 FS 20.7 % EDV(Teich) 92.9 ml ESV(Teich) 53.5 ml EF(Teich) 42.3 % EDV(cubed) 91.6 ml ESV(cubed) 45.7 ml EF(cubed) 50.1 % % IVS thick 3.2 % % LVPW thick 2.3 % LV mass(C)d 253.4 grams LV mass(C)dI 126.1 grams/m\S\2 LV mass(C)s 189.7 grams LV mass(C)sI 94.4 grams/m\S\2 SV(Teich) 39.3 ml SI(Teich) 19.6 ml/m\S\2 SV(cubed) 45.9 ml SI(cubed) 22.9 ml/m\S\2 Ao root diam 3.9 cm Ao root area 11.7 cm\S\2 ACS 2.2 cm LA dimension 4.3 cm LA/Ao 1.1 LVOT diam 2.0 cm LVOT area 3.3 cm\S\2 LVAd ap4 36.2 cm\S\2 LVLd ap4 8.1 cm EDV(MOD-sp4) 132.8 ml EDV(sp4-el) 137.8 ml LVAs ap4 26.3 cm\S\2 LVLs ap4 7.0 cm ESV(MOD-sp4) 82.2 ml ESV(sp4-el) 83.2 ml EF(MOD-sp4) 38.1 % EF(sp4-el) 39.6 % LVAd ap2 29.9 cm\S\2 LVLd ap2 7.1 cm EDV(MOD-sp2) 105.2 ml EDV(sp2-el) 107.4 ml LVAs ap2 23.6 cm\S\2 LVLs ap2 6.5 cm ESV(MOD-sp2) 69.8 ml ESV(sp2-el) 72.2 ml EF(MOD-sp2) 33.6 % EF(sp2-el) 32.8 % LVLd %diff -13.86 % EDV(MOD-bp) 127.6 ml LVLs %diff -7.54 % ESV(MOD-bp) 78.5 ml EF(MOD-bp) 38.4 % SV(MOD-sp4) 50.5 ml SI(MOD-sp4) 25.2 ml/m\S\2 SV(MOD-sp2) 35.3 ml SI(MOD-sp2) 17.6 ml/m\S\2 SV(MOD-bp) 49.0 ml SI(MOD-bp) 24.4 ml/m\S\2 SV(sp4-el) 54.6 ml SI(sp4-el) 27.2 ml/m\S\2 SV(sp2-el) 35.2 ml SI(sp2-el) 17.5 ml/m\S\2 Doppler Measurements and Calculations MV E max maira 71.8 cm/sec MV P1/2t max maira 93.1 cm/sec MV P1/2t 108.2 msec MVA(P1/2t) 2.0 cm\S\2 MV dec slope 252.0 cm/sec\S\2 MV dec time 0.32 sec Ao V2 max 103.7 cm/sec Ao max PG 4.3 mmHg Ao max PG (full) 2.6 mmHg BRIT(V,A) 2.0 cm\S\2 BRIT(V,D) 2.0 cm\S\2 LV V1 max PG 1.7 mmHg LV V1 max 64.5 cm/sec MR max maira 429.8 cm/sec MR max PG 73.9 mmHg PA V2 max 83.5 cm/sec PA max PG 2.8 mmHg PI max maira 260.6 cm/sec PI max PG 27.2 mmHg PI dec slope 397.5 cm/sec\S\2 PI P1/2t 192.0 msec TR max maira 337.5 cm/sec
[2016-06-15] MEDS ORDERED: HEPARIN 25,000 UNIT/500ML D5W 500 ML IV PRN (13:00)
[2016-06-15] MEDS ORDERED: NURSING VERBAL MED ORDER ONE (13:15)
[2016-06-15 15:30] VITALS: BP 122/64; PULSE 92; O2SAT 96
--- NOTE | 2016-06-19 15:30 | DISCHARGE SUMMARY ---
PRIMARY DISCHARGE DIAGNOSIS: 1. Severe coronary artery disease with unsuccessful percutaneous coronary intervention. 2. Multiple incisional hernia. 3. Hypertension. 4. gastroesophageal reflux disease. PROCEDURE PERFORMED: 1. Laparoscopic repair of multiple incisional hernias with 10 cm and [address] Vang. 2. Coronary angiography, left heart cath, renal artery angiography by Dr. Flores on 06/15/2016. HOSPITAL COURSE: The patient is an 81-year-old male with multiple incisional hernias, admitted through same day and taken to the operating room for laparoscopic hernia repair. While in recovery, he had some EKG changes with ST elevations as well as depressions. Cardiology was consulted. He was not symptomatic. He was transferred to telemetry for further monitoring. In the morning of postoperative day 1, he remained asymptomatic, although his troponin bumped to 0.5. 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 He had severe disease which was not amenable to percutaneous intervention and recommendation was for transfer for cardiothoracic evaluation. Once arrangements were made and bed available he was transferred by [facility] to [facility]. MICHELLE
== END 2016-06-15 14:00 | disposition short-term general hospital (02) | DRG 335 ==
LOC: ENRESERVTM → ENRESERVDT → C.ACU 09:05 → C.2T 14:42
PROVIDERS: ADMIT Surgery; ATTEND Surgery
PROC: 0WUF4JZ Supplement Abdominal Wall with Synthetic Substitute, Percutaneous Endoscopic Approach (ICD-10-PCS; 2016-06-14)
PROC: 0DNW4ZZ Release Peritoneum, Percutaneous Endoscopic Approach (ICD-10-PCS; 2016-06-14)
PROC: B2111ZZ Fluoroscopy of Multiple Coronary Arteries using Low Osmolar Contrast (ICD-10-PCS; 2016-06-15)
PROC: B2151ZZ Fluoroscopy of Left Heart using Low Osmolar Contrast (ICD-10-PCS; 2016-06-15)
PROC: 4A023N7 Measurement of Cardiac Sampling and Pressure, Left Heart, Percutaneous Approach (ICD-10-PCS; principal; 2016-06-15 11:01)
DX: K43.0 Incisional hernia with obstruction, without gangrene (principal); I21.4 Non-ST elevation (NSTEMI) myocardial infarction; I24.8 Other forms of acute ischemic heart disease; I25.110 Atherosclerotic heart disease of native coronary artery with unstable angina pectoris; I10 Essential (primary) hypertension; Z87.891 Personal history of nicotine dependence; K21.9 Gastro-esophageal reflux disease without esophagitis; F03.90 Unspecified dementia, unspecified severity, without behavioral disturbance, psychotic disturbance, mood disturbance, and anxiety; D64.9 Anemia, unspecified; F41.9 Anxiety disorder, unspecified; N40.0 Benign prostatic hyperplasia without lower urinary tract symptoms; H26.9 Unspecified cataract; H91.90 Unspecified hearing loss, unspecified ear; R73.01 Impaired fasting glucose; G62.9 Polyneuropathy, unspecified; E55.9 Vitamin D deficiency, unspecified; Z79.82 Long term (current) use of aspirin; Z79.899 Other long term (current) drug therapy; Z88.8 Allergy status to other drugs, medicaments and biological substances; Z86.73 Personal history of transient ischemic attack (TIA), and cerebral infarction without residual deficits; Z87.440 Personal history of urinary (tract) infections; Z90.49 Acquired absence of other specified parts of digestive tract; Z80.42 Family history of malignant neoplasm of prostate; Z80.51 Family history of malignant neoplasm of kidney